=== PATIENT | female | born 1990 | race Caucasian/White ===

== ENCOUNTER 2023-10-23 09:23 | Outpatient (CLI) | payer BC, SELFPAY ==
--- NOTE | ~2023-10-23 | US_ITS ---
US breast RT complete DATE: 10/23/2023 10:00 INDICATION: Lumpy area and right breast 10:00 7 cm from nipple for one month, pain. No family history of breast cancer. TECHNIQUE: Complete right breast ultrasound examination was performed, including all 4 quadrants and subareolar area, with particular attention to the area of complaint at 10:00 7 cm from nipple COMPARISON: None FINDINGS: No suspicious mass or shadowing, cyst or other significant sonographic abnormality of the r ight breast is detected. IMPRESSION: BI-RADS Category 1: Negative Recommendation: Routine mammographic screening beginning at age 40 unless there are earlier symptoms or physical findings. Reviewed, dictated and finalized at [facility]. Reviewed, dictated and finalized at [facility].
== END 2023-10-23 09:24 | disposition home or self-care (01) ==
LOC: ANHIMG 09:36
PROVIDERS: PCP Student in an Organized Health Care Education/Training Program; Visit Provider Nurse Practitioner Obstetrics & Gynecology
DX: N63.10 Unspecified lump in the right breast, unspecified quadrant (principal)
CPT/HCPCS: 76641